=== PATIENT | female | born 1950 | race Caucasian/White ===

== ENCOUNTER 2018-02-24 08:41 | Observation (INO) ==
--- NOTE | 2018-02-15 16:21 | MH ---
cc: Jazmine Hoffman MD DATE OF ADMISSION: 02/24/2018 ADMITTING DIAGNOSIS: Osteoarthritic degeneration left knee, now being admitted for a left total knee arthroplasty. HISTORY OF PRESENT ILLNESS: This pleasant 67-year-old female is being admitted today for left total knee arthroplasty due to severe painful osteoarthritic degeneration of the left knee. OTHER PAST MEDICAL HISTORY: The patient has a history of known medical problems. She has no medications listed and previous surgeries include cholecystectomy. REVIEW OF SYSTEMS: Noncontributory. FAMILY HISTORY: Noncontributory. SOCIAL HISTORY: She does not smoke or drink. ALLERGIES: NO KNOWN ALLERGIES, BUT SHE IS NOT ALLOWED TO TAKE NSAIDS. PHYSICAL EXAMINATION: GENERAL: We find a 67-year-old female who developed, well-nourished, A and O x3, complaining of pain in her left knee. VITAL SIGNS: Blood pressure 110/62, pulse 73 and regular, respirations 18, temperature 98.2, pulse oximetry 96% on room air. HEENT: Eyes: PERRLA, EOMI. Ears, nose, mouth clear. NECK: Supple. LUNGS: Clear. HEART: Regular rate. ABDOMEN: Soft, positive bowel sounds, nontender. EXTREMITIES: Reveal left knee to have restrictive motion from 60 degrees of flexion to -5 of extension. She is neurovascularly intact to her toes. IMPRESSION: Severe painful arthritic degeneration of the left knee. PLAN: Admission for left total knee arthroplasty today. The patient was given prescription for postoperative pain and anticoagulation control in the office. Plans on going home after surgical stay in the hospital. MD MOE Obrien/olivia , 04:04 PM , 04:10 PM EDOUARD
[2018-02-24] MEDS ORDERED: Metoprolol Tartrate 25 MG Tablet PO ONE (09:15)
[2018-02-24] MEDS ORDERED: Chlorhexidine Gluconate 2% 1 Pack (2 Cloths) TOPICAL ONE (09:15)
[2018-02-24] MEDS ORDERED: Sodium Chlor 0.9% Inj 500 ML IV.CONT ONE (09:15)
[2018-02-24] MEDS ORDERED: Chlorhexidine 4% Topical 120 APPLIC/120 ML Bottle TOPICAL SCH (09:15)
[2018-02-24] MEDS ORDERED: ceFAZolin Inj 1 GM Vial (Addvantage) IV.SIG ONE (09:17)
[2018-02-24] MEDS ORDERED: SODIUM CHLOR 0.9% P-ARTICULR ONE ×3 (09:36)
[2018-02-24] MEDS ORDERED: BUPIVACAINE LIPOSO 1.3% P-ARTICULR ONE ×3 (09:36)
[2018-02-24] MEDS ORDERED: [UNRECOGNIZED DRUG - OTHER] P-ARTICULR ONE ×3 (09:36)
[2018-02-24] MEDS ORDERED: Bupivacaine 0.5% Inj 50 ML MDV Vial ONE (09:50)
[2018-02-24] MEDS ORDERED: Sodium Chlor 0.9% Inj 80 ML, Bupivacaine Liposo PF 1.3% Inj 20 ML, Bupivacaine PF 0.25%... P-ARTICULR SCH ×3 (10:00)
[2018-02-24] MEDS ORDERED: ceFAZolin 2 GM Premix Inj 2 GM/50 ML PIGGYBACK IV.SIG SCH (10:00)
[2018-02-24] MEDS ORDERED: SODIUM CHLOR 0.9% IV.SIG SCH (10:00)
[2018-02-24] MEDS ORDERED: TRANEXAMIC ACID IV.SIG SCH (10:00)
[2018-02-24] MEDS ORDERED: Vancomycin Inj 1,000 MG in Sodium Chlor 0.9% Inj 250 ML IV.SIG SCH (10:00)
[2018-02-24] MEDS ORDERED: Bisacodyl 10 MG Supp RECTAL PRN (10:37)
[2018-02-24] MEDS ORDERED: Morphine Inj 4 MG/ML Vial IV.PUSH PRN (10:37)
[2018-02-24] MEDS ORDERED: Post-op Orders (for Pharmacy) OTHER STA (10:37)
--- NOTE | 2018-02-24 10:42 | P.DCO ---
- Diagnosis (1) Status post total left knee replacement using cement Status: Acute - Physical Therapy Order: Evaluate and treat, Improve ambulation, Strength and gait training - Home Health Nursing Order: Medical education - Case Management Consult Case Management Consult-Home Health: Yes - Certification I have seen patient Jaye Paiz on 02/24/18. My clinical findings support the need for the requested home health care services because: Limited ability to care for self, High risk of falls I certify that my clinical findings support that this patient is homebound because: Post-op weakness, Unsteady gait/balance, Unsafe to leave home unassisted
[2018-02-24] MEDS ORDERED: fentaNYL Citrate Inj 100 MCG/2 ML Ampul ONE ×2 (13:28)
[2018-02-24] MEDS ORDERED: *morphine SULFATE 4 MG/ML PERIprocedure ONLY ONE ×3 (13:34→13:48)
--- NOTE | 2018-02-24 13:41 | MP ---
cc: Jazmine Hoffman MD DATE OF OPERATION: 02/24/2018 PREOPERATIVE DIAGNOSIS: Osteoarthritic degeneration with contracture, left knee. POSTOPERATIVE DIAGNOSIS: Osteoarthritic degeneration with contracture, left knee. SURGERY PERFORMED: Left total knee arthroplasty, release of contractures and adhesions, left knee using Consensus components, size 4 femur, 3 tibia, 1 patella with a 14 standard insert, and 2 batches of antibiotic cement. SURGEON: Jazmine Hoffman MD CEREAL MILLER: Samantha Dubois APRN. ANESTHESIA: General intubation and block. PROCEDURE IN DETAIL: After successful induction of anesthesia, the patient is placed on the operating room table in the supine position. The knee is prepped and draped in the usual manner. A tourniquet is inflated at the upper thigh and set to 300 mmHg pressure after exsanguination of the lower extremity. A longitudinal incision is made extending from 3 inches proximal to the superior pole of the patella, across the patella in longitudinal fashion, and down past the insertion of the tibial tubercle into the proximal tibia. The incision is carried down through subcutaneous tissue along the medial aspect of the patella and retinaculum, down through the capsule to expose the knee joint. The patella and patellar tendon are freed up enough to allow the patella to be inverted and retracted off the lateral side of the knee joint. The knee joint is left exposed. Small osteophytes are removed. All soft tissue is removed to allow proper position of the femoral and tibial cutting jig guide. The first femoral jig is then inserted along the distal end of the femur after first measuring to decide whether this is a small, medium, or large component. The notch is then drilled and the tibial cutting guide inserted into the femoral cutting guide, along with the ankle brace to allow for proper measurement of the tibial cutting surface that needed to be resected. Pins are inserted into the tibial cutting jig and femoral cutting jig to hold them in place. An oscillating saw is then used to resect the surface of the tibia. The surface of the tibia is then completely removed using sharp and blunt dissection. The anterior and posterior cuts of the femur are then made as well using an oscillating saw through the cutting guide. All guides are then removed and the varus/valgus angulation cutting guide applied to the femur for proper measurement of the proper amount of valgus. The anterior cutting guide for the femur is then inserted at the anterior femoral cuts made. Next, the first block trial is inserted into the femur to allow for proper condyle drill holes to be made which are then made followed by removal of the bone between the condyles using an oscillating saw as well as the bone removed at the most posterior surface of the condyle. After this, this guide is removed and the chamfer cuts made using the chamfer cutting guide from both anterior and posterior. Next, the femoral trial is then inserted, the tibial surface reflected anterior to expose the tibial surface and a tibial stem guide is inserted after first measuring for a standard, standard plus, large, or large plus surface to be used. After the stem is impacted the trial tibial surface is applied followed by the trial meniscal components. After full range of motion is found with the appropriate length meniscal components varying the patella is prepared by resecting the posterior aspect of the patella using an oscillating saw, inserting a trial. The trial is then removed and the cruciate cutting guide applied using the bur to cut the cruciate cuts. After cruciate cuts are made all trials are removed. The wound is irrigated copiously with antibiotic solution and Water Pik and the actual components inserted into place using the aforementioned components. After the cement has hardened and the components are found to have full range of motion with no instability, the tourniquet is deflated, total tourniquet time being 54 minutes at 300 mmHg pressure. The wound again is irrigated copiously with antibiotic solution, meticulous hemostasis achieved. Two Autovac tubes inserted, followed by closure of the deep fascia with both running and interrupted #1 Vicryl suture, subcutaneous tissue approximated using interrupted 2-0 Vicryl sutures, and skin approximated with chris. Wet and dry dressing is applied to the wound followed by Xeroform gauze, sterile dressing and knee immobilizer. The patient tolerated the procedure well and left the operating room in satisfactory condition. At least an extra 30 minutes time of adhesion release was needed to be done to allow the knee to be flexed to 90 degrees, to be able to perform the procedure, as well as a lateral retinacular release. Meticulous hemostasis achieved. 120 mL mixture of 80 of normal saline, 20 of Exparel, and 20 of 0.25% Marcaine plain were injected around the knee for extra pain control. The medial collateral ligament needed to be repaired with #1 Vicryl, as well for better stability. Deep fascia approximated with running #2 Quill. Subcutaneous tissue approximated using interrupted and running 2-0 and 3-0 Quill, and a Prineo dressing. No drain utilized. Knee immobilizer applied. ESTIMATED BLOOD LOSS: 100 mL. COUNTS: Sponge and suture counts were correct. The patient tolerated the procedure well and had full range of motion upon the end of the procedure with no instability Samantha Dubois APRN was present throughout the procedure including patient positioning. MEDICAL NECESSITY: A nurse practitioner/nurse first assist was indicated in this case, due to the surgical complexity of the case itself and during the surgical case, the surgical supplies sterilizer was working at the back table, while my manager surgical/EXCEL EXPERT was directly assisting me. J. MD MOE Buchanan/rh , 01:11 PM , 01:22 PM
[2018-02-24] MEDS ORDERED: Tranexamic Acid Inj 1,000 MG in Sodium Chlor 0.9% Inj 100 ML IV.SIG ONE (14:00)
--- NOTE | 2018-02-24 14:13 | XR ---
EXAM DATE: 02/24/2018 2:03 PM EST AGE/SEX: 67 years / Female INDICATIONS: Post op left knee. CLINICAL DATA: This is the patient's initial encounter. Patient reports that signs and symptoms have been present for 1 day and indicates a pain score of Nonresponsive. MEDICAL/SURGICAL HISTORY: None. None. COMPARISON: POI, XR KNEE COMPLETE, LEFT, 11/19/2017. . FINDINGS: There is a knee prosthesis in place. There is good position and alignment with the bony structures. T he bony structures are grossly intact. There are postsurgical changes present. CONCLUSION: Good position and alignment on this postoperative study. Electronically signed by: Khang Pate MD Board Certified Radiologist 02/24/2018 2:11 PM EST
[2018-02-24] MEDS: ceFAZolin Inj 1 GM in Sodium Chlor 0.9% Inj 100 ML IV.SIG SCH ×2 (17:50→22:16)
--- NOTE | 2018-02-24 18:34 | P.BOP ---
- Preoperative Diagnosis (1) Osteoarthritis of left knee - Postoperative Diagnosis (1) Status post total left knee replacement using cement Date of procedure: 02/24/18 Procedure: Left total Knee Arthroplasty Implants: see implant record Anesthesia: GETA Surgeon: Surekha Hoffman MD Apricot Washer: Samantha Dubois Estimated blood loss (mL): 100 Tourniquet time (min): 55 Urine output (mL): 0 (no christina) Pathology: none sent Condition: stable Disposition: PACU
[2018-02-24] MEDS: Senna/Docusate Sodium 8.6/50 MG Tablet PO SCH (22:15)
[2018-02-25] MEDS: ceFAZolin Inj 1 GM in Sodium Chlor 0.9% Inj 100 ML IV.SIG SCH (04:44)
[2018-02-25 06:04] LABS: Hematocrit 37.5 % (35.0-46.0); Hemoglobin 12.5 gm/dL (11.6-15.3)
[2018-02-25] MEDS: Senna/Docusate Sodium 8.6/50 MG Tablet PO SCH (07:45)
[2018-02-25] MEDS ORDERED: Docusate Sodium 100 MG Capsule PO SCH (09:00)
[2018-02-25] MEDS ORDERED: Calcium/Vitamin D 250/125 MG Tablet PO SCH (09:00)
[2018-02-25 09:03] VITALS: O2SAT 94
[2018-02-25 13:06] VITALS: BP 107/52; PULSE 83; RESP 16; TEMP 98.5
--- NOTE | 2018-02-25 15:39 | P.PNOP ---
Subjective Interval history: Patient having some pain but otherwise comfortable. She wants to go home today. Physical Exam Vital signs: Vital Signs 02/24/18 16:00 02/24/18 19:00 02/24/18 23:30 Temperature 97.7 F 97.4 F L 97.7 F Pulse Rate 83 82 96 H Respiratory Rate 18 18 18 Blood Pressure 116/59 L 124/58 L 107/53 L Pulse Oximetry 95 95 94 L 02/25/18 03:25 02/25/18 08:00 02/25/18 12:00 Temperature 98 F 97.7 F 98.5 F Pulse Rate 90 89 83 Respiratory Rate 17 18 16 Blood Pressure 102/51 L 104/54 L 107/52 L Pulse Oximetry 95 94 L 94 L Intake & Output 02/24/18 02/25/18 02/25/18 18:59 06:59 18:59 Intake Total 2283.84 / 2283.84 1949 Output Total 100 / 100 Balance 2183.84 / 2183.84 1949 Weight 97.2 kg Intake: IV 513.84 / 513.84 1200 / 1200 LR 1000 mL Inj 1,000 ML @ 80 54 / 54 1000 / 1000 mls/hr IV.CONT .[id number] KIAN Rx# :[id number] Cyklokapron Inj 984 MG In NS 109.84 / 109.84 Inj 100 ML @ 200 mls/hr IV.SIG [employer] KIAN Rx#:[id number] Vancomycin Inj 1,000 MG In NS 250 / 250 Inj 250 ML @ 250 mls/hr IV.SIG [employer]OEM[employer] KIAN Rx#:[id number] Ancef Inj 1 GM In NS Inj 100 ML 100 / 100 200 / 200 @ 100 mls/hr IV.SIG Q6H KIAN Rx #:[id number] Oral 270 / 270 750 / 750 Anesthesia Amount 1500 / 1500 Output: Urine 0 / 0 Estimated Blood Loss 100 / 100 Other: # Voids 1 Date of Last Bowel Movement 02/23/18 02/23/18 # Bowel Movements 0 0 Weight On Admission 98.4 kg - Constitutional no acute distress Results - Labs CBC & Chem 7: 02/25/18 04:43 Laboratory Results - last 24 hr 02/25/18 04:43 Hgb 12.5 Hct 37.5 Assessment and Plan - Problem List (1) Status post total left knee replacement using cement Code(s): Z96.652 - Presence of left artificial knee joint Status: Acute - Attending Attestation Attending Attestation: Wound is clean and dry. Leg is somewhat swollen. She does have some warmth down in her lower extremity about her ankle from previous vascular problems. She is otherwise neurovascular intact is negative Homans sign. Plan is for the patient to be discharged today with physical therapy and home health care. She is in good condition and return next week for recheck. She has pain medication at home. She is on an anticoagulant.
== END 2018-02-25 16:10 | disposition home health service (06) ==
LOC: HSDC 08:41 → HSDI 08:41 → EDSTATUS 11:00 → N06 14:59
PROVIDERS: ADMIT Surgery; ATTEND Surgery
CPT/HCPCS: 73560; 85014; 85018; 86850; 86900; 86901; 94150; 96365; 96366; 96376; 97110; 97116; 97150; 97162; C1776; C9290; G0378; G8987; G8988; J0690; J2250; J2270; J3010; J3370; J7050; J7120; L1830